=== PATIENT | female | born 1970 | race Caucasian/White ===

== ENCOUNTER 2018-11-07 15:25 | Emergency (ER) | payer SELFPAY ==
[~2018-11-07] VITALS: Ht 175.3 cm; Wt 79.4 kg
--- OUTSIDE RECORDS SUMMARY | 2018-11-07 15:28 | XMS REPORT ---
Author Author [facility] Address Unknown Phone Unavailable Care Team Providers Care O And M Supervisor Name Role Phone Unavailable Unavailable Payers Payer Name Policy Type Policy Number Effective Date Expiration Date Problems This patient has no known problems. Allergies, Adverse Reactions, Alerts Allergy Name Allergy Type Status Severity Reaction(s) Onset Date Inactive Date Treating Clinician Comments sulfamethoxazole DA Active SV 2018-07-25 00:00:00 trimethoprim DA Active SV 2018-07-25 00:00:00 sulfamethoxazole DA Active MO 2018-07-24 00:00:00 trimethoprim DA Active MO 2018-07-24 00:00:00 milk DA Active 2015-09-09 00:00:00 Medications This patient has no known medications. Results Test Description Test Time Test Comments Text Results Atomic Results Result Comments C REACTIVE PROTEIN 2018-07-31 07:32:00 C REACTIVE PROTEIN (test code=CRP) 0.50 MG/DL 0.00-9.99 MODESTA [id number] 07:32:00* Test Item Value Reference Range Comments MODESTA DIRECT (test code=ANADIR) Positive () Negative <1:80 Borderline 1:80 Positive >1:80 HOMOGENEOUS PATTERN=1:160 HIGH Negative <1:80 Borderline 1:80 Positive >1:80Note:A positive MODESTA result may occur in healthy individuals (lowtiter) or be associated with a variety of diseases. Seeinterpretation chart which is not all inclusive: Pattern Antigen Detected Suggested Disease Association ------- --------- Homogeneous DNA(ds,ss), SLE - High titers Nucleosomes, Histones Drug-induced SLE Speckled Sm, EARTH MOVER, SCL-70 SLE,MCTD,PSS (diffuse form), SS-A/SS-B Sjogrens Nucleolar SCL-70, PM-1/SCL High titers Scleroderma, PM/DM Centromere Centromere PSS (limited form) w/Crest syndrome variable Nuclear Dot Sp100,[id number] Primary Biliary Cirrhosis Nuclear GP210, Primary Biliary CirrhosisMembrane radha A,B,C Previously reported result: Positive Edited by: MIKALA on 07/31/18:80601707/31/18 0731: MODESTA DIRECT previously reported as: Positive H Negative <1:80 Borderline 1:80 Positive >1:80 AB [id number] 07:32:00* Test Item Value Reference Range Comments AB BLASTOMYCES (test code=BLASTOAB) Negative Neg:<1:1 INTERPRETATION: <1:8 NO ANTIBODY DETECTED. NO EVIDENCE OF IMMUNITY.> OR=1:8 ANTIBODY DETECTED. SUGGESTIVE OF INFECTION AT SOME UNDETERMINED TIME IN THE PAST. MANY PROVEN CASES OF BLASTOMYCOSIS FAIL TO REACTSEROLOGICALLY, THEREFORE, THE ABSENCE OF TITER DOES NOT RULEOUT THE POSSIBILITY OF INFECTION. IT IS RECOMMENDED THATACUTE AND CONVALESCENT SERA BE SUBMITTED AND ASSAYEDTOGETHER TO OBTAIN A DIAGNOSTIC INTERPRETATION OF AN ACUTEINFECTION, IF CLINICALLY INDICATED. AB [id number] 07:32:00* Test Item Value Reference Range Comments AB COCCIDIOIDES (test code=COCCIAB) <0.150 < 1:2 C REACTIVE [id number] 07:31:00* Test Item Value Reference Range Comments C REACTIVE PROTEIN (test code=CRP) 0.50 MG/DL 0.00-9.99 MODESTA [id number] 07:31:00* Test Item Value Reference Range Comments MODESTA DIRECT (test code=ANADIR) Positive () Negative <1:80 Borderline 1:80 Positive >1:80 HOMOGENEOUS PATTERN=1:160 HIGH Negative <1:80 Borderline 1:80 Positive >1:80Note:A positive MODESTA result may occur in healthy individuals (lowtiter) or be associated with a variety of diseases. Seeinterpretation chart which is not all inclusive: Pattern Antigen Detected Suggested Disease Association ------- --------- Homogeneous DNA(ds,ss), SLE - High titers Nucleosomes, Histones Drug-induced SLE Speckled Sm, EARTH MOVER, SCL-70 SLE,MCTD,PSS (diffuse form), SS-A/SS-B Sjogrens Nucleolar SCL-70, PM-1/SCL High titers Scleroderma, PM/DM Centromere Centromere PSS (limited form) w/Crest syndrome variable Nuclear Dot Sp100,h41-taddqp Primary Biliary Cirrhosis Nuclear GP210, Primary Biliary CirrhosisMembrane radha A,B,C Previously reported result: Positive Edited by: MIKALA on 07/31/18:[id number]/31/18 0731: MODESTA DIRECT previously reported as: Positive H Negative <1:80 Borderline 1:80 Positive >1:80 AB [id number] 07:31:00* Test Item Value Reference Range Comments AB BLASTOMYCES (test code=BLASTOAB) Negative Neg:<1:1 INTERPRETATION: <1:8 NO ANTIBODY DETECTED. NO EVIDENCE OF IMMUNITY.> OR=1:8 ANTIBODY DETECTED. SUGGESTIVE OF INFECTION AT SOME UNDETERMINED TIME IN THE PAST. MANY PROVEN CASES OF BLASTOMYCOSIS FAIL TO REACTSEROLOGICALLY, THEREFORE, THE ABSENCE OF TITER DOES NOT RULEOUT THE POSSIBILITY OF INFECTION. IT IS RECOMMENDED THATACUTE AND CONVALESCENT SERA BE SUBMITTED AND ASSAYEDTOGETHER TO OBTAIN A DIAGNOSTIC INTERPRETATION OF AN ACUTEINFECTION, IF CLINICALLY INDICATED. AB [id number] 07:31:00* Test Item Value Reference Range Comments AB COCCIDIOIDES (test code=COCCIAB) < 1:2 C REACTIVE [id number] 07:18:00* Test Item Value Reference Range Comments C REACTIVE PROTEIN (test code=CRP) 0.50 MG/DL 0.00-9.99 MODESTA [id number] 07:18:00* Test Item Value Reference Range Comments MODESTA DIRECT (test code=ANADIR) Positive () Negative <1:80 Borderline 1:80 Positive >1:80 AB [id number] 07:18:00* Test Item Value Reference Range Comments AB BLASTOMYCES (test code=BLASTOAB) Negative Neg:<1:1 INTERPRETATION: <1:8 NO ANTIBODY DETECTED. NO EVIDENCE OF IMMUNITY.> OR=1:8 ANTIBODY DETECTED. SUGGESTIVE OF INFECTION AT SOME UNDETERMINED TIME IN THE PAST. MANY PROVEN CASES OF BLASTOMYCOSIS FAIL TO REACTSEROLOGICALLY, THEREFORE, THE ABSENCE OF TITER DOES NOT RULEOUT THE POSSIBILITY OF INFECTION. IT IS RECOMMENDED THATACUTE AND CONVALESCENT SERA BE SUBMITTED AND ASSAYEDTOGETHER TO OBTAIN A DIAGNOSTIC INTERPRETATION OF AN ACUTEINFECTION, IF CLINICALLY INDICATED. AB [id number] 07:18:00* Test Item Value Reference Range Comments AB COCCIDIOIDES (test code=COCCIAB) < 1:2 - CT CHEST W/O [id number] 00:02:00 Patient Name: DAISY MILIAN Unit No: [id number] EXAMS: CPT CODE: [id number] CT CHEST W/O CONTRAST 07408 LOCATION: V20 EXAM: - CT CHEST W/O CONTRAST HISTORY: ILD TECHNIQUE: Axial imaging of the chest from the base of the neck through the upper abdomen without the administration of intravenous contrast is performed . Prone and supine high-resolution images are performed. Sagittal and coronal reconstructions. CT scan performed using appropriate/available dose optimization/reduction techniques. DLP 712.40 mGy*cm COMPARISON:CTA chest 07/25/2018 FINDINGS: The visualized thyroid gland is unremarkable. No mediastinal, hilar or axillary lymphadenopathy. The noncalcified thoracic aorta is at the upper limits of normal, measuring 4.0 x 3.9 cm at the level of the right main pulmonary artery. The heart size is normal. No pericardial eff usion. The main pulmonary artery is noted to be dilated measuring up to 3.1 cm at the pulmonary artery bifurcation. Trace bila teral pleural effusions are present, increased since prior. Subjacent mil d groundglass density is present, which resolves on prone imaging compatib le with atelectasis. No evidence of a reticular or centrilobular process. A few scattered nonspecific nodules are present, a 2 mm right upper lobe nodule is present series 4 image 21. A 3 mm right lower lobe nodule is p resent, image 31. There is no evidence of honeycombing. No bronchiectasi s. Evaluation the visualized portion of the upper abdomen demonstr ates increased density material in the gallbladder compatible with sludge. The osseous structures are intact. IMPRESSION: 1. No findings to indicate interstitial lung disease. 2. Trace bilateral pleural effusions. 3. Small nonspecific paren chymal nodules are present. Follow-up according to Fleischner Society g uigermaine is recommended: In a low risk patient, no routine follow up is prescribed. In a high risk patient, consider CT follow up at a 12 month interval. 4. The pulmonary artery is noted to be mildly dilat ed, which can be seen in pulmonary artery hypertension. [facility] NAME: DAISY MILIAN [address] PHYS: [place] [address] : 1970 AGE: 48 SEX: F LOC: Z.442 A PHONE #: [phone] EXAM DATE: 07/27/2018 STATUS: DIS IN FAX #: [phone] RAD #: D/C DT [id number] PAGE 1 Signed Report (CONTINUED) Patient Name: DAISY MILIAN Unit No: [id number] EXAMS: CPT CODE: [id number] CT CHEST W/O CONTRAST 76262 <Continued> 5. The thoracic aorta is at the upper limits of normal. 6. Small amount of sludge in the gallbladder. at 0002 Reported and signed by: Narcisa Moreno MD CC: Raymundo Ashley MD; Brook Fierro MD Technologist: DAISY FLOREZ RT(R); Loli Gr, RT CTDI: DLP: Trnscrpt: 07/28/2018 (0002) t.[email or web address].NS15 [facility] NAME: DAISY MILIAN PHYS: [place] [address] : 1970 AGE: 48 SEX: F LOC: Z.442 A PHONE #: [phone] EXAM DATE: 07/27/2018 STATUS: DIS IN FAX #: [phone] RAD #: D/C DT [id number] PAGE 2 Signed Report Patient Name: DAISY MILIAN Unit No: [id number] EXAMS: CPT CODE: [id number] CT CHEST W/O CONTRAST 21528 <Continued> Orig Print D/T: S: 07/28/2018 (0005) [facility]an NAME: DAISY MILIAN PHYS: [place] [address] : 1970 AGE: 48 SEX: F LOC: Z.442 A PHONE #: [phone] EXAM DATE: 07/27/2018 STATUS: DIS IN FAX #: [phone] RAD #: D/C DT [id number] PAGE 3 Signed Report - CT CHEST W/O [id number] 00:02:00 Patient Name: DAISY MILIAN Unit No: [id number] EXAMS: CPT CODE: [id number] CT CHEST W/O CONTRAST 56202 LOCATION: V20 EXAM: - CT CHEST W/O CONTRAST HISTORY: ILD TECHNIQUE: Axial imaging of the chest from the base of the neck through the upper abdomen without the administration of intravenous contrast is performed . Prone and supine high-resolution images are performed. Sagittal and coronal reconstructions. CT scan performed using appropriate/available dose optimization/reduction techniques. DLP 712.40 mGy*cm COMPARISON:CTA chest 07/25/2018 FINDINGS: The visualized thyroid gland is unremarkable. No mediastinal, hilar or axillary lymphadenopathy. The noncalcified thoracic aorta is at the upper limits of normal, measuring 4.0 x 3.9 cm at the level of the right main pulmonary artery. The heart size is normal. No pericardial eff usion. The main pulmonary artery is noted to be dilated measuring up to 3.1 cm at the pulmonary artery bifurcation. Trace bila teral pleural effusions are present, increased since prior. Subjacent mil d groundglass density is present, which resolves on prone imaging compatib le with atelectasis. No evidence of a reticular or centrilobular process. A few scattered nonspecific nodules are present, a 2 mm right upper lobe nodule is present series 4 image 21. A 3 mm right lower lobe nodule is p resent, image 31. There is no evidence of honeycombing. No bronchiectasi s. Evaluation the visualized portion of the upper abdomen demonstr ates increased density material in the gallbladder compatible with sludge. The osseous structures are intact. IMPRESSION: 1. No findings to indicate interstitial lung disease. 2. Trace bilateral pleural effusions. 3. Small nonspecific paren chymal nodules are present. Follow-up according to Fleischner Society g uidelines is recommended: In a low risk patient, no routine follow up is prescribed. In a high risk patient, consider CT follow up at a 12 month interval. 4. The pulmonary artery is noted to be mildly dilat ed, which can be seen in pulmonary artery hypertension. [facility] NAME: DAISY MILIAN [address] PHYS: [place] [address] : 1970 AGE: 48 SEX: F LOC: Z.442 A PHONE #: [phone] EXAM DATE: 07/27/2018 STATUS: ADM IN FAX #: [phone] RAD #: D/C DT PAGE 1 Signed Report (CONTINUED) Patient Name: DAISY MILIAN Unit No: [id number] EXAMS: CPT CODE: [id number] CT CHEST W/O CONTRAST 59089 <Continued> 5. The thoracic aorta is at the upper limits of normal. 6. Small amount of sludge in the gallbladder. at 0002 Reported and signed by: Narcisa Moreno MD CC: Raymundo Ashley MD; Brook Fierro MD Technologist: DAISY FLOREZ RT(R); Loli Gr RT CTDI: DLP: Trnscrpt: 07/28/2018 (0002) [email or web address] [facility] NAME: DAISY [address]IAN[address] PHYS: Brook Capellan MD [place] [id number] : 1970 AGE: 48 SEX: F LOC: Z.442 A PHONE #: [phone] EXAM DATE: 07/27/2018 STATUS: ADM IN FAX #: [phone] RAD #: D/C DT PAGE 2 Signed Report Patient Name: DAISY MILIAN Unit No: [id number] EXAMS: CPT CODE: [id number] CT CHEST W/O CONTRAST 73153 <Continued> Orig Print D/T: S: 07/28/2018 (0005) [facility] NAME: DAISY MILIAN PHYS: [place] [address] : 1970 AGE: 48 SEX: F LOC: Z.442 A PHONE #: [phone] EXAM DATE: 07/27/2018 STATUS: ADM IN FAX #: [phone] RAD #: D/C DT PAGE 3 Signed Report RHEUMATOID FACTOR [id number] 22:13:00* Test Item Value Reference Range Comments RHEUMATOID FACTOR SCREEN (test code=RA) NEGATIVE NEGATIVE SED [id number] 18:54:00* Test Item Value Reference Range Comments SED RATE (test code=SEDW) 44 MM/HR 0-20 C REACTIVE [id number] 18:54:00* Test Item Value Reference Range Comments C REACTIVE PROTEIN (test code=CRP) 0.50 MG/DL 0.00-9.99 MODESTA [id number] 18:54:00* Test Item Value Reference Range Comments MODESTA DIRECT (test code=ANADIR) NEGATIVE AB [id number] 18:54:00* Test Item Value Reference Range Comments AB BLASTOMYCES (test code=BLASTOAB) NEG: <1:1 AB [id number] 18:54:00* Test Item Value Reference Range Comments AB COCCIDIOIDES (test code=COCCIAB) < 1:2 PROCALCITONIN (PCT)2018-07-26 18:50:00* Test Item Value Reference Range Comments PROCALCITONIN (PCT) (test code=PROCAL) < 0.05 NG/ML PROCALCITONIN (PCT) NORMAL RANGE (ADULT):<0.05 NG/ML. - a concentration < 0.5 ng/mL represents a low risk ofsevere sepsis and/or septic shock. - a concentration > 2 ng/mL represents a high risk ofsevere sepsis and/or septic shock. Nevertheless, concentrations < 0.5 ng/mL do not exclude aninfection, on account of localized infections (withoutsystemic signs) which can be associated with such lowconcentrations, or a systemic infection in its initialstages (< 6 hours). Furthermore, increased procalcitonincan occur without infection. PCT concentrations between 0.5and 2.0 ng/mL should be interpreted taking into account thepatient's history. It is recommended to retest PCT within 6-24 hours if any concentrations < 2 ng/mL are obtained. [id number] 13:55:00* Test Item Value Reference Range Comments TROPONIN-I (test code=TROPI) 0.053 NG/ML 0.012-0.033 Q 6HRS. LAB.RB LIPOPROTEIN LDL [id number] 09:03:00* Test Item Value Reference Range Comments LIPOPROTEIN LDL DIRECT (test code=LDLDIR) 131 mg/dL 100-129 Reference Interval: mg/dL mmol/L Optimal <100 <2.6Near/above optimal 100-129 2.6- 3.3Borderline High 130-159 3.4-4.1High 160-189 4.1-4.9Very High >=190 >=4.9=========This LDL result is a direct measurement.========= [id number] 09:03:00* Test Item Value Reference Range Comments TROPONIN-I (test code=TROPI) 0.080 NG/ML 0.012-0.033 LIPOPROTEIN LDL [id number] 08:03:00* Test Item Value Reference Range Comments LIPOPROTEIN LDL DIRECT (test code=LDLDIR) mg/dL 100-129 [id number] 08:03:00* Test Item Value Reference Range Comments TROPONIN-I (test code=TROPI) 0.080 NG/ML 0.012-0.033 - CTA [id number] 23:32:00 Patient Name: DAISY MILIAN Unit No: [id number] EXAMS: CPT CODE: [id number] CTA CHEST 69789 Examination: CTA chest, PE protocol Indication: Chest pain Comparison: None available Location: P16 Technique: Multiple contiguous axial 1.25 mm images were obtained through the lung after administration of IV contrast. Coronal and sagittal maximum intensity projection (MIPs) images were generated. One or more of the following dose reduction techniques were used: Automated exposure control, adjustment of the mA and/or kV according to patient size, and/or utilization of iterative reconstruction technique. Findings: Evaluation limited secondary to phase of contrast, contrast is an aortic phase, this may in part be secondary to altered hemodynamics in setting of the patient's habitus. No evidence of acute pulmonary embolism is seen to the level of the proximal lobar pulmonary arteries. Nonspecific dilation of the main pulmonary artery is seen measuring up to 3.1 cm this can be seen in the setting of pulmonary artery hypertension. These findings were confirmed on MPR and MIP images. History imaging evaluation. No large consolidation, mass or pneumothorax is visualized. No pleural effusion of pleural thickening. There are no enlarged mediastinal, hilar, supraclavicular or axillary lymph nodes by CT criteria. Heart size is normal. There is no pericardial effusion or thickening. Ascending aorta is mildly dilated to 4 cm.. Although the evaluation of the aortic root is limited in the absence of gating, the remainder of the aorta remains unremarkable with the exception of aortic calcifications. Limited early arterial phase evaluation of the upper abdomen is unremarkable. No suspicious or destructive osseous lesions. Likely Schmorl's node is seen within the lower thoracic vertebral bodies Impression: 1. Limited examination secondary to phase of contrast, no evidence of acute pulmonary embolism is seen to level of proximal lobar pulmonary [facility] NAME: DAISY MILIAN PHYS: [place] [address] : 1970 AGE: 48 SEX: F LOC: Z.442 A PHONE #: [phone] EXAM DATE: 07/25/2018 STATUS: DIS IN FAX #: [phone] RAD #: D/C DT [id number] PAGE 1 Signed Report (CONTINUED) Patient Name: DAISY MILIAN Unit No: [id number] EXAMS: CPT C ODE: [id number] CTA CHEST 82870 <Continued> arteries 2. Additional findings as detailed above at 2332 Reported and signed by: Jerry Hawkins CC: Aristeo Delgadillo Technologist: Bob Lo, RT(R)(CT) CTDI: DLP: Trnscrpt: 07/25/2018 (2332) t.[email or web address] [facility] NAME: DAISY MILIAN PHYS: [address] [place] [address] : 1970 AGE: 48 SEX: F LOC: Z.442 A PHONE #: [phone] EXAM DATE: 07/25/2018 STATUS: DIS IN FAX #: [phone] RAD #: D/C DT [id number] PAGE 2 Signed Report Patient Name: DAISY MILIAN Unit No: [id number] EXAMS: CPT CODE: [id number] CTA CHEST 37437 <Continued> Orig Print D/T: S: 07/25/2018 (2335) [facility] NAME: DAISY MILIAN PHYS: [place] [address] : 1970 AGE: 48 SEX: F LOC: Z.442 A PHONE #: [phone] EXAM DATE: 07/25/2018 STATUS: DIS IN FAX #: [phone] RAD #: D/C [id number] PAGE 3 Signed Report - CTA [id number] 23:32:00 Patient Name: DAISY MILIAN Unit No: [id number] EXAMS: CPT CODE: [id number] CTA CHEST 59298 Examination: CTA chest, PE protocol Indication: Chest pain Comparison: None available Location: P16 Technique: Multiple contiguous axial 1.25 mm images were obtained through the lung after administration of IV contrast. Coronal and sagittal maximum intensity projection (MIPs) images were generated. One or more of the following dose reduction techniques were used: Automated exposure control, adjustment of the mA and/or kV according to patient size, and/or utilization of iterative reconstruction technique. Findings: Evaluation limited secondary to phase of contrast, contrast is an aortic phase, this may in part be secondary to altered hemodynamics in setting of the patient's habitus. No evidence of acute pulmonary embolism is seen to the level of the proximal lobar pulmonary arteries. Nonspecific dilation of the main pulmonary artery is seen measuring up to 3.1 cm this can be seen in the setting of pulmonary artery hypertension. These findings were confirmed on MPR and MIP images. History imaging evaluation. No large consolidation, mass or pneumothorax is visualized. No pleur al effusion of pleural thickening. There are no enlarged mediasti nal, hilar, supraclavicular or axillary lymph nodes by CT criteria. Heart size is normal. There is no pericardial effusion or thickening. Ascending aorta is mildly dilated to 4 cm.. Although the evaluation of the aortic root is limited in the absence of gating, the remainder of the aorta remains unremarkable with the exception of aortic calcif ications. Limited early arterial phase evaluation of the upper abd omen is unremarkable. No suspicious or destructive osseous lesions. Likely Schmorl's node is seen within the lower thoracic vertebra l bodies Impression: 1. Limited exa mination secondary to phase of contrast, no evidence of acute pulmonary embolism is seen to level of proximal lobar pulmonary [facility] NAME: DAISY MILIAN [address] PHYS: LATANYA [place] [address] : 1970 AGE: 48 SEX: F LOC: Z.ERS PHONE #: [phone] EXAM DATE: 07/25/2018 STATUS: PRE ER FAX #: [phone] RAD #: D/C DT PAGE 1 Signed Report (CONTINUED) Patient Name: DAISY MILIAN Unit No: [id number] EXAMS: CPT C ODE: [id number] CTA CHEST 61911 <Continued> arteries 2. Additional findings as detailed above at 2332 Reported and signed by: Jerry Hawkins CC: Aristeo Delgadillo Technologist: Bob Lo, RT(R)(CT) CTDI: DLP: Trnscrpt: 07/25/2018 (233) [email or web address] [facility]an NAME: DAISY MILIAN [address] PHYS: [place] [address] : 1970 AGE: 48 SEX: F LOC: Bradley.ERS PHONE #: [phone] EXAM DATE: 07/25/2018 STATUS: PRE ER FAX #: [phone] RAD #: D/C DT PAGE 2 Signed Report Patient Name: DAISY MILIAN Unit No: [id number] EXAMS: CPT CODE: [id number] CTA CHEST 17956 <Continued> Orig Print D/T: S: 07/25/2018 (1335) [facility] NAME: DAISY MILIAN [address] PHYS: [address] [place] [address] : 1970 AGE: 48 SEX: F LOC: Z.ERS PHONE #: [phone] EXAM DATE: 07/25/2018 STATUS: PRE ER FAX #: [phone] RAD #: D/C DT PAGE 3 Signed Report NT PRO-BRAIN NATRIURETIC [id number] 23:24:00* Test Item Value Reference Range Comments NT PRO-BRAIN NATRIURETIC PEPTI (test code=PROBNP) 43.1 pg/mL 0-125 NT PRO-BNP IS THE REPLACEMENT ASSAY FOR BNP. [id number] 23:24:00* Test Item Value Reference Range Comments TROPONIN-I (test code=TROPI) < 0.012 NG/ML 0.012-0.033 TROPONIN I [id number] 23:00:00* Test Item Value Reference Range Comments TROPONIN I RAPID (test code=TROPIRAP) 0.00 NG/ML 0.00-0.05 CBC W/O [id number] 22:58:00* Test Item Value Reference Range Comments WHITE BLOOD CELL (test code=WBC) 11.5 K/MM3 3.8-9.8 RED BLOOD CELL (test code=RBC) 4.29 M/MM3 3.58-4.97 HEMOGLOBIN (test code=HGB) 12.7 G/DL 11.2-14.9 HEMATOCRIT (test code=HCT) 38.5 % 33.2-43.5 MEAN CELL VOLUME (test code=MCV) 90 fL 80.7-99.1 MEAN CELL HGB (test code=MCH) 29.6 pg 27.0-34.1 MEAN CELL HGB CONCETRATION (test code=MCHC) 33.0 % 32.2-35.7 RED CELL DISTRIBUTION WIDTH (test code=RDW) 13.2 % 12.1-15.2 PLATELET COUNT (test code=PLT) 268 K/MM3 129-368 IMMATURE GRANULOCYTE % (test code=IG%) 0.3 % 0.0-2.0 NEUTROPHIL # (test code=NT#) 9.3 K/mm3 2.0-7.6 IMMATURE GRANULOCYTE # (test code=IG#) 0.04 x10 3/uL 0-0.03 LYMPHOCYTE # (test code=LY#) 2.0 K/mm3 1.0-3.8 MONOCYTE # (test code=MO#) 0.13 K/mm3 0.1-0.8 EOSINOPHIL # (test code=EO#) 0.0 K/mm3 0.0-0.2 BASOPHIL # (test code=BA#) 0.02 K/mm3 0.0-0.2 NUCLEATED RBC # (test code=NRBC#) 0.0 K/mm3 0.0-0.1 - XR CHEST [id number] 22:56:00 Patient Name: DAISY MILIAN Unit No: [id number] EXAMS: CPT CODE: [id number] XR CHEST 1V 08596 EXAM: - XR CHEST 1V LOCATION: C3 HISTORY: SOB, CP COMPARISON: None available time of interpretation. FINDINGS: Single view of the chest. No indwelling lines or tubes. No pneumothorax. The lungs are clear. No pleural effusions are present. The mediastinal contours are unremarkable. No acute osseous findings are present. IMPRESSION: No acute cardiopulmonary abnormality. at 2256 Reported and signed by: Josesito Owen MD CC: Aristeo Delgadillo Technologist: Mariann Mckeon (RT) Transcrpt Date/Tm/Trnsp: 07/25/2018 (113) [email or web address] Orig Print D/T: S: 07/25/2018 (2812) [facility] NAME: DAISY MILIAN [address] PHYS: LATANYA [place] [address] : 1970 AGE: 48 SEX: F LOC: Z.442 A PHONE #: [phone] EXAM DATE: 07/25/2018 STATUS: DIS IN FAX #: [phone] RADIOLOGY NO: PAGE 1 Signed Report - XR CHEST [id number] 22:56:00 Patient Name: DAISY MILIAN Unit No: [id number] EXAMS: CPT CODE: [id number] XR CHEST 1V [id number] EXAM: - XR CHEST 1V LOCATION: C3 HISTORY: SOB, CP COMPARISON: None available time of interpretation. FINDINGS: Single view of the chest. No indwelling lines or tubes. No pneumothorax. The lungs are clear. No pleural effusions are present. The mediastinal contours are unremarkable. No acute osseous findings are present. IMPRESSION: No acute cardiopulmonary abnormality. at 2256 Reported and signed by: Josesito Owen MD CC: Aristeo Delgadillo Technologist: Mariann Mckeon (RT) Transcrpt Date/Tm/Trnsp: 07/25/2018 (2255) [email or web address] Orig Print D/T: S: 07/25/2018 (085) VANESSA Quan NAME: DAISY MILIAN PHYS: [place] [address] : 1970 AGE: 48 SEX: F LOC: Z.ERS PHONE #: [phone] EXAM DATE: 07/25/2018 STATUS: PRE ER FAX #: [phone] RADIOLOGY NO: PAGE 1 Signed Report - XR CHEST [id number] 22:56:00 Patient Name: DAISY MILIAN Unit No: [id number] EXAMS: CPT CODE: [id number] XR CHEST 1V [id number] EXAM: - XR CHEST 1V LOCATION: C3 HISTORY: SOB, CP COMPARISON: None available time of interpretation. FINDINGS: Single view of the chest. No indwelling lines or tubes. No pneumothorax. The lungs are clear. No pleural effusions are present. The mediastinal contours are unremarkable. No acute osseous findings are present. IMPRESSION: No acute cardiopulmonary abnormality. at 2256 Reported and signed by: Josesito Owen MD CC: Aristeo Delgadillo Technologist: Mariann Mckeon (RT) Transcrpt Date/Tm/Trnsp: 07/25/2018 (2255) [email or web address] Orig Print D/T: S: 07/25/2018 (941) VANESSA Quan NAME: DAISY MILIAN PHYS: [place] [address] : 1970 AGE: 48 SEX: F LOC: Z.442 A PHONE #: [phone] EXAM DATE: 07/25/2018 STATUS: ADM IN FAX #: [phone] RADIOLOGY NO: PAGE 1 Signed Report POC VENOUS BLOOD [id number] 22:52:00* Test Item Value Reference Range Comments POC LACTIC ACID (test code=POCLAC) 2.30 MMOL/L 0.4-2.0 POC VENOUS BLOOD GAS PH (test code=POCPHV) 7.402 7.35-7.45 POC VENOUS BLOOD GAS PCO2 (test code=SQBZVG8C) 40.8 mmHg 35.0-45.0 POC VENOUS BLOOD GAS PO2 (test code=HXXET8K) 40.0 mmHG 0-40 POC HCO3 VENOUS (test code=UGQOBI4W) 25.4 MMOL/L 20-26 POC BASE EXCESS VENOUS (test code=POCBEV) 1 MMOL/L -3.0-3.0 POC O2 SATURATION VENOUS (test code=CDBA4AS) 75 % 72-77 CHEMISTRY 8 [id number] 22:52:00* Test Item Value Reference Range Comments IONIZED CALCIUM (test code=CAIABG) MMOL/L 1.12-1.24 ISTAT-TCO2 VENOUS (test code=TCO2VP) MMOL/L 23-32 ISTAT-SODIUM (test code=NAP) MMOL/L 137-144 ISTAT-POTASSIUM (test code=KP) MMOL/L 3.1-4.8 ISTAT-CHLORIDE (test code=CLP) MMOL/L 97-108 ISTAT-GLUCOSE (test code=GLUP) MG/DL 60-99 ISTAT-BUN (test code=BUNP) MG/DL 9-21 BEDSIDE CREATININE (test code=CREATBED) MG/DL 0.6-1.4 GLOMERULAR FILTRATION RATE POC (test code=GFRBED) 77 58-135 Reporting units: ml/min/1.73 m2 (Modified MDRD Formula)Reference Range: > or=60 ml/min/1.73 m2 CHEMISTRY 8 [id number] 22:52:00* Test Item Value Reference Range Comments IONIZED CALCIUM (test code=CAIABG) 1.12 MMOL/L 1.12-1.24 ISTAT-TCO2 VENOUS (test code=TCO2VP) 25 MMOL/L 23-32 ISTAT-SODIUM (test code=NAP) 141 MMOL/L 137-144 ISTAT-POTASSIUM (test code=KP) 3.8 MMOL/L 3.1-4.8 ISTAT-CHLORIDE (test code=CLP) 104 MMOL/L 97-108 ISTAT-GLUCOSE (test code=GLUP) 135 MG/DL 60-99 ISTAT-BUN (test code=BUNP) 7 MG/DL 9-21 BEDSIDE CREATININE (test code=CREATBED) 0.8 MG/DL 0.6-1.4 GLOMERULAR FILTRATION RATE POC (test code=GFRBED) 77 58-135 Reporting units: ml/min/1.73 m2 (Modified MDRD Formula)Reference Range: > or=60 ml/min/1.73 m2 - MRA HEAD W/O [id number] 22:47:00 Patient Name: DAISY MILIAN Unit No: [id number] EXAMS: CPT CODE: [id number] MRA HEAD W/O CONT 19122 HISTORY: Headache TECHNIQUE: Multiplanar multisequence MR images of the brain were obtained without intravenous contrast. 3-D uakg-mv-zrepgo MRA images of the [place] were obtained. FINDINGS: There is no intracranial hemorrhage, mass or mass effect. The ventricular system and sulci are age-appropriate. There is no evidence of acute infarction. No significant signal abnormalities are demonstrated throughout the brain. Appropriate flow-voids are present at the skull base. The visualized orbits and sinuses show no significant abnormalities. MRA: The intracranial internal carotid arteries, anterior cerebral arteries, and middle cerebral arteries show no significant abnormalities. A small anterior communicating artery is present. Posterior communicating arteries are visualized. The distal vertebral arteries, basilar artery, and posterior cerebral arteries show no significant abnormalities. IMPRESSION: 1. No significant intracranial abnormalities demonstrated. 2. No significant intracranial vascular abnormality identified. at 2247 Reported and signed by: Brennan Steve MD CC: Undefined Provider Technologist: RT Angel(Dm)(CT) Transcrpt Date/Tm/Trnsp: 07/25/2018 (2246) [email or web address] Orig Print D/T: S: 07/25/2018 (0192) [facility] NAME: DAISY MILIAN [address] [address] PHYS: UNDEFINED - [place] [address] : 1970 AGE: 48 SEX: F LOC: Z.MRI PHONE #: [phone] EXAM DATE: 07/25/2018 STATUS: REG REF FAX #: [phone] RADIOLOGY NO: PAGE 1 Signed Report - MRI BRAIN W/O [id number] 22:47:00 Patient Name: DAISY MILIAN Unit No: [id number] EXAMS: CPT CODE: [id number] MRI BRAIN W/O CONTRAST 08123 HISTORY: Headache TECHNIQUE: Multiplanar multisequence MR images of the brain were obtained without intravenous contrast. 3-D kdba-jt-kimdws MRA images of the [place] were obtained. FINDINGS: There is no intracranial hemorrhage, mass or mass effect. The ventricular system and sulci are age-appropriate. There is no evidence of acute infarction. No significant signal abnormalities are demonstrated throughout the brain. Appropriate flow-voids are present at the skull base. The visualized orbits and sinuses show no significant abnormalities. MRA: The intracranial internal carotid arteries, anterior cerebral arteries, and middle cerebral arteries show no significant abnormalities. A small anterior communicating artery is present. Posterior communicating arteries are visualized. The distal vertebral arteries, basilar artery, and posterior cerebral arteries show no significant abnormalities. IMPRESSION: 1. No significant intracranial abnormalities demonstrated. 2. No significant intracranial vascular abnormality identified. at 2247 Reported and signed by: Brennan Steve MD CC: Undefined Provider Technologist: RT Angel(R)(CT) Transcrpt Date/Tm/Trnsp: 07/25/2018 (3903) [email or web address] Orig Print D/T: S: 07/25/2018 (6590) [facility] NAME: DAISY MILIAN [address] [address] PHYS: UNDEFINED - [place] [address] : 1970 AGE: 48 SEX: F LOC: Z.MRI PHONE #: [phone] EXAM DATE: 07/25/2018 STATUS: REG REF FAX #: [phone] RADIOLOGY NO: PAGE 1 Signed Report - MRA HEAD W/O [id number] 22:47:00 Patient Name: DAISY MILIAN Unit No: [id number] EXAMS: CPT CODE: [id number] MRA HEAD W/O CONT 36046 HISTORY: Headache TECHNIQUE: Multiplanar multisequence MR images of the brain were obtained without intravenous contrast. 3-D ieeh-ck-mtiohg MRA images of the [place] were obtained. FINDINGS: There is no intracranial hemorrhage, mass or mass effect. The ventricular system and sulci are age-appropriate. There is no evidence of acute infarction. No significant signal abnormalities are demonstrated throughout the brain. Appropriate flow-voids are present at the skull base. The visualized orbits and sinuses show no significant abnormalities. MRA: The intracranial internal carotid arteries, anterior cerebral arteries, and middle cerebral arteries show no significant abnormalities. A small anterior communicating artery is present. Posterior communicating arteries are visualized. The distal vertebral arteries, basilar artery, and posterior cerebral arteries show no significant abnormalities. IMPRESSION: 1. No significant intracranial abnormalities demonstrated. 2. No significant intracranial vascular abnormality identified. at 2247 Reported and signed by: Brennan Steve MD CC: Undefined Provider Technologist: RT Angel(R)(CT) Transcrpt Date/Tm/Trnsp: 07/25/2018 (2246) [email or web address] Orig Print D/T: S: 07/25/2018 (9662) [facility] NAME: DAISY MILIAN [address] [address] PHYS: UNDEFINED - [place] [address] : 1970 AGE: 48 SEX: F LOC: Z.MRI PHONE #: [phone] EXAM DATE: 07/25/2018 STATUS: REG REF FAX #: [phone] RADIOLOGY NO: PAGE 1 Signed Report - MRI BRAIN W/O [id number] 22:47:00 Patient Name: DAISY MILIAN Unit No: [id number] EXAMS: CPT CODE: [id number] MRI BRAIN W/O CONTRAST 03102 HISTORY: Headache TECHNIQUE: Multiplanar multisequence MR images of the brain were obtained without intravenous contrast. 3-D eifj-vm-skrgef MRA images of the [place] were obtained. FINDINGS: There is no intracranial hemorrhage, mass or mass effect. The ventricular system and sulci are age-appropriate. There is no evidence of acute infarction. No significant signal abnormalities are demonstrated throughout the brain. Appropriate flow-voids are present at the skull base. The visualized orbits and sinuses show no significant abnormalities. MRA: The intracranial internal carotid arteries, anterior cerebral arteries, and middle cerebral arteries show no significant abnormalities. A small anterior communicating artery is present. Posterior communicating arteries are visualized. The distal vertebral arteries, basilar artery, and posterior cerebral arteries show no significant abnormalities. IMPRESSION: 1. No significant intracranial abnormalities demonstrated. 2. No significant intracranial vascular abnormality identified. at 2247 Reported and signed by: Brennan Steve MD CC: Undefined Provider Technologist: Magdy Richardson RT(R)(CT) Transcrpt Date/Tm/Trnsp: 07/25/2018 (2246) [email or web address] Orig Print D/T: S: 07/25/2018 (547) [facility] NAME: DAISY MILIAN [id number] [address] PHYS: UNDEFINED - [place] [address] : 1970 AGE: 48 SEX: F LOC: Z.MRI PHONE #: [phone] EXAM DATE: 07/25/2018 STATUS: REG REF FAX #: [phone] RADIOLOGY NO: PAGE 1 Signed Report [id number] 17:47:00* Test Item Value Reference Range Comments MAGNESIUM (test code=MAG) 2.1 MG/DL 1.6-2.3 FAX TO 320 816 8164T3 [id number] 17:47:00* Test Item Value Reference Range Comments T3 FREE (test code=T3F) 3.24 PG/ML 2.77-5.27 FAX TO 317 614 8105THYROID STIMULATING [id number] 17:47:00* Test Item Value Reference Range Comments THYROID STIMULATING HORMONE (test code=TSH) 1.580 MIU/L 0.465-4.68 Please be aware that bias results for TSH may occur forpatient who are taking Biotin supplements. FAX TO [phone] [id number] 17:33:00* Test Item Value Reference Range Comments MAGNESIUM (test code=MAG) 2.1 MG/DL 1.6-2.3 FAX TO 837 208 8164T3 [id number] 17:33:00* Test Item Value Reference Range Comments T3 FREE (test code=T3F) 3.24 PG/ML 2.77-5.27 FAX TO 832 962 8164THYROID STIMULATING [id number] 17:33:00* Test Item Value Reference Range Comments THYROID STIMULATING HORMONE (test code=TSH) MIU/L 0.465-4.68 FAX TO 832 962 8164T4 [id number] 17:32:00* Test Item Value Reference Range Comments T4 FREE (test code=T4F) 1.4 NG/DL 0.78-2.19 FAX TO 832 962 [id number] 17:16:00* Test Item Value Reference Range Comments MAGNESIUM (test code=MAG) 2.1 MG/DL 1.6-2.3 FAX TO 832 962 8164T3 [id number] 17:16:00* Test Item Value Reference Range Comments T3 FREE (test code=T3F) PG/ML 2.77-5.27 FAX TO 832 962 8164THYROID STIMULATING [id number] 17:16:00* Test Item Value Reference Range Comments THYROID STIMULATING HORMONE (test code=TSH) MIU/L 0.465-4.68 FAX TO 832 962 8164CPK-MB [id number] 17:47:00* Test Item Value Reference Range Comments CREATINE KINASE (CK) (test code=CK) 84 UNITS/L 30-135 CKMB (test code=CKMBT) < 0.22 NG/ML 0.0-5.6 CKMB INDEX (test code=CKMBI) 0.3 % 4.0-4.4 [id number] 17:47:00* Test Item Value Reference Range Comments TROPONIN-I (test code=TROPI) < 0.012 NG/ML 0.012-0.033 CPK-MB [id number] 17:32:00* Test Item Value Reference Range Comments CREATINE KINASE (CK) (test code=CK) 84 UNITS/L 30-135 CKMB (test code=CKMBT) NG/ML 0.0-5.6 CKMB INDEX (test code=CKMBI) % 4.0-4.4 [id number] 17:32:00* Test Item Value Reference Range Comments TROPONIN-I (test code=TROPI) NG/ML 0.0-0.045 HCG SERUM [id number] 11:53:00* Test Item Value Reference Range Comments HCG SERUM QUAL (test code=HCGQL) NEGATIVE NEGATIVE PROTHROMBIN [id number] 11:43:00* Test Item Value Reference Range Comments PROTHROMBIN TIME PATIENT (test code=PTP) 10.1 SECONDS 9.6-11.6 INTERNATIONAL NORMAL RATIO (test code=INR) 1.0 0.8-1.1 The INR is to be used only for monitoring oral anticoagulanttherapy. INDICATION INR VALUE 1. Prophylaxis, deep venous thrombosis, including high risk surgery. 2.0 - 3.0 2. Prophylaxis, deep venous thrombosis, hip surgery, treatment for deep venous thrombosis or pulmonary prevention of systemic embolism in patients with valvular heart disease, atrial fibrillation, tissue heart valve, or acute myocardial infarction. 2.0 - 3.0 3. M echanical prosthesis heart valves, recurrent systemic embolism. 3.0 - 4.5 [id number] 11:21:00* Test Item Value Reference Range Comments MAGNESIUM (test code=MAG) 2.0 MG/DL 1.6-2.3 CPK-MB [id number] 11:21:00* Test Item Value Reference Range Comments CREATINE KINASE (CK) (test code=CK) 89 UNITS/L 30-135 CKMB (test code=CKMBT) 0.23 NG/ML 0.0-5.6 CKMB INDEX (test code=CKMBI) 0.3 % 4.0-4.4 [id number] 11:21:00* Test Item Value Reference Range Comments TROPONIN-I (test code=TROPI) < 0.012 NG/ML 0.012-0.033 [id number] 11:16:00* Test Item Value Reference Range Comments MAGNESIUM (test code=MAG) MG/DL 1.6-2.3 CPK-MB [id number] 11:16:00* Test Item Value Reference Range Comments CREATINE KINASE (CK) (test code=CK) 89 UNITS/L 30-135 CKMB (test code=CKMBT) 0.23 NG/ML 0.0-5.6 CKMB INDEX (test code=CKMBI) 0.3 % 4.0-4.4 [id number] 11:16:00* Test Item Value Reference Range Comments TROPONIN-I (test code=TROPI) < 0.012 NG/ML 0.012-0.033 CPK-MB [id number] 10:49:00* Test Item Value Reference Range Comments CREATINE KINASE (CK) (test code=CK) 89 UNITS/L 30-135 CKMB (test code=CKMBT) NG/ML 0.0-5.6 CKMB INDEX (test code=CKMBI) % 4.0-4.4 [id number] 10:49:00* Test Item Value Reference Range Comments TROPONIN-I (test code=TROPI) NG/ML 0.0-0.045 BASIC METABOLIC [id number] 05:29:00* Test Item Value Reference Range Comments SODIUM (test code=NA) 141 MMOL/L 137-145 POTASSIUM (test code=K) 4.1 MMOL/L 3.5-5.1 CHLORIDE (test code=CL) 110 MMOL/L 98-107 CARBON DIOXIDE (test code=CO2) 27 MMOL/L 22-30 ANION GAP (test code=GAP) 8 MMOL/L 14-24 GLUCOSE (test code=GLU) 92 MG/DL 74-106 BLOOD UREA NITROGEN (test code=BUN) 9 MG/DL 7-17 GLOMERULAR FILTRATION RATE (test code=GFR) > 60 Reporting units: ml/min/1.73 m2 (Modified MDRD Formula)Reference Range: > or=60 ml/min/1.73 m2 CREATININE (test code=CREAT) 0.90 MG/DL 0.52-1.04 CALCIUM (test code=CA) 9.2 MG/DL 8.4-10.2 [id number] 05:29:00* Test Item Value Reference Range Comments MAGNESIUM (test code=MAG) 2.1 MG/DL 1.6-2.3 T3,T4 [id number] 05:29:00* Test Item Value Reference Range Comments T3 UPTAKE (test code=T3UP) 32.8 % UP 23.5-40.5 T4 (THYROXINE) (test code=T4) 8.18 UG/DL 5.53-11.0 T7 (FREE THYROXINE INDEX) (test code=T7) 2.7 1.2-4.3 THYROID STIMULATING [id number] 05:29:00* Test Item Value Reference Range Comments THYROID STIMULATING HORMONE (test code=TSH) 2.770 MIU/L 0.465-4.68 Please be aware that bias results for TSH may occur forpatient who are taking Biotin supplements. CPK-MB [id number] 05:29:00* Test Item Value Reference Range Comments CREATINE KINASE (CK) (test code=CK) 88 UNITS/L 30-135 CKMB (test code=CKMBT) < 0.22 NG/ML 0.0-5.6 CKMB INDEX (test code=CKMBI) 0.2 % 4.0-4.4 [id number] 05:29:00* Test Item Value Reference Range Comments TROPONIN-I (test code=TROPI) < 0.012 NG/ML 0.012-0.033 BASIC METABOLIC [id number] 05:04:00* Test Item Value Reference Range Comments SODIUM (test code=NA) 141 MMOL/L 137-145 POTASSIUM (test code=K) 4.1 MMOL/L 3.5-5.1 CHLORIDE (test code=CL) 110 MMOL/L 98-107 CARBON DIOXIDE (test code=CO2) 27 MMOL/L 22-30 ANION GAP (test code=GAP) 8 MMOL/L 14-24 GLUCOSE (test code=GLU) 92 MG/DL 74-106 BLOOD UREA NITROGEN (test code=BUN) 9 MG/DL 7-17 GLOMERULAR FILTRATION RATE (test code=GFR) > 60 Reporting units: ml/min/1.73 m2 (Modified MDRD Formula)Reference Range: > or=60 ml/min/1.73 m2 CREATININE (test code=CREAT) 0.90 MG/DL 0.52-1.04 CALCIUM (test code=CA) 9.2 MG/DL 8.4-10.2 [id number] 05:04:00* Test Item Value Reference Range Comments MAGNESIUM (test code=MAG) 2.1 MG/DL 1.6-2.3 T3,T4 [id number] 05:04:00* Test Item Value Reference Range Comments T3 UPTAKE (test code=T3UP) 32.8 % UP 23.5-40.5 T4 (THYROXINE) (test code=T4) 8.18 UG/DL 5.53-11.0 T7 (FREE THYROXINE INDEX) (test code=T7) 1.2-4.3 THYROID STIMULATING [id number] 05:04:00* Test Item Value Reference Range Comments THYROID STIMULATING HORMONE (test code=TSH) 2.770 MIU/L 0.465-4.68 Please be aware that bias results for TSH may occur forpatient who are taking Biotin supplements. CPK-MB [id number] 05:04:00* Test Item Value Reference Range Comments CREATINE KINASE (CK) (test code=CK) 88 UNITS/L 30-135 CKMB (test code=CKMBT) < 0.22 NG/ML 0.0-5.6 CKMB INDEX (test code=CKMBI) 0.2 % 4.0-4.4 [id number] 05:04:00* Test Item Value Reference Range Comments TROPONIN-I (test code=TROPI) < 0.012 NG/ML 0.012-0.033 BASIC METABOLIC [id number] 04:50:00* Test Item Value Reference Range Comments SODIUM (test code=NA) 141 MMOL/L 137-145 POTASSIUM (test code=K) 4.1 MMOL/L 3.5-5.1 CHLORIDE (test code=CL) 110 MMOL/L 98-107 CARBON DIOXIDE (test code=CO2) 27 MMOL/L 22-30 ANION GAP (test code=GAP) 8 MMOL/L 14-24 GLUCOSE (test code=GLU) 92 MG/DL 74-106 BLOOD UREA NITROGEN (test code=BUN) 9 MG/DL 7-17 GLOMERULAR FILTRATION RATE (test code=GFR) > 60 Reporting units: ml/min/1.73 m2 (Modified MDRD Formula)Reference Range: > or=60 ml/min/1.73 m2 CREATININE (test code=CREAT) 0.90 MG/DL 0.52-1.04 CALCIUM (test code=CA) 9.2 MG/DL 8.4-10.2 [id number] 04:50:00* Test Item Value Reference Range Comments MAGNESIUM (test code=MAG) 2.1 MG/DL 1.6-2.3 T3,T4 [id number] 04:50:00* Test Item Value Reference Range Comments T3 UPTAKE (test code=T3UP) 32.8 % UP 23.5-40.5 T4 (THYROXINE) (test code=T4) 8.18 UG/DL 5.53-11.0 T7 (FREE THYROXINE INDEX) (test code=T7) 1.2-4.3 THYROID STIMULATING [id number] 04:50:00* Test Item Value Reference Range Comments THYROID STIMULATING HORMONE (test code=TSH) MIU/L 0.465-4.68 CPK-MB [id number] 04:50:00* Test Item Value Reference Range Comments CREATINE KINASE (CK) (test code=CK) 88 UNITS/L 30-135 CKMB (test code=CKMBT) < 0.22 NG/ML 0.0-5.6 CKMB INDEX (test code=CKMBI) 0.2 % 4.0-4.4 [id number] 04:50:00* Test Item Value Reference Range Comments TROPONIN-I (test code=TROPI) < 0.012 NG/ML 0.012-0.033 BASIC METABOLIC [id number] 04:45:00* Test Item Value Reference Range Comments SODIUM (test code=NA) 141 MMOL/L 137-145 POTASSIUM (test code=K) 4.1 MMOL/L 3.5-5.1 CHLORIDE (test code=CL) 110 MMOL/L 98-107 CARBON DIOXIDE (test code=CO2) 27 MMOL/L 22-30 ANION GAP (test code=GAP) 8 MMOL/L 14-24 GLUCOSE (test code=GLU) 92 MG/DL 74-106 BLOOD UREA NITROGEN (test code=BUN) 9 MG/DL 7-17 GLOMERULAR FILTRATION RATE (test code=GFR) > 60 Reporting units: ml/min/1.73 m2 (Modified MDRD Formula)Reference Range: > or=60 ml/min/1.73 m2 CREATININE (test code=CREAT) 0.90 MG/DL 0.52-1.04 CALCIUM (test code=CA) 9.2 MG/DL 8.4-10.2 [id number] 04:45:00* Test Item Value Reference Range Comments MAGNESIUM (test code=MAG) 2.1 MG/DL 1.6-2.3 T3,T4 [id number] 04:45:00* Test Item Value Reference Range Comments T3 UPTAKE (test code=T3UP) % UP 23.5-40.5 T4 (THYROXINE) (test code=T4) UG/DL 5.53-11.0 T7 (FREE THYROXINE INDEX) (test code=T7) 1.2-4.3 THYROID STIMULATING [id number] 04:45:00* Test Item Value Reference Range Comments THYROID STIMULATING HORMONE (test code=TSH) MIU/L 0.465-4.68 CPK-MB [id number] 04:45:00* Test Item Value Reference Range Comments CREATINE KINASE (CK) (test code=CK) 88 UNITS/L 30-135 CKMB (test code=CKMBT) < 0.22 NG/ML 0.0-5.6 CKMB INDEX (test code=CKMBI) 0.2 % 4.0-4.4 [id number] 04:45:00* Test Item Value Reference Range Comments TROPONIN-I (test code=TROPI) < 0.012 NG/ML 0.012-0.033 BASIC METABOLIC [id number] 04:41:00* Test Item Value Reference Range Comments SODIUM (test code=NA) 141 MMOL/L 137-145 POTASSIUM (test code=K) 4.1 MMOL/L 3.5-5.1 CHLORIDE (test code=CL) 110 MMOL/L 98-107 CARBON DIOXIDE (test code=CO2) 27 MMOL/L 22-30 ANION GAP (test code=GAP) 8 MMOL/L 14-24 GLUCOSE (test code=GLU) 92 MG/DL 74-106 BLOOD UREA NITROGEN (test code=BUN) 9 MG/DL 7-17 GLOMERULAR FILTRATION RATE (test code=GFR) > 60 Reporting units: ml/min/1.73 m2 (Modified MDRD Formula)Reference Range: > or=60 ml/min/1.73 m2 CREATININE (test code=CREAT) 0.90 MG/DL 0.52-1.04 CALCIUM (test code=CA) 9.2 MG/DL 8.4-10.2 [id number] 04:41:00* Test Item Value Reference Range Comments MAGNESIUM (test code=MAG) 2.1 MG/DL 1.6-2.3 T3,T4 [id number] 04:41:00* Test Item Value Reference Range Comments T3 UPTAKE (test code=T3UP) % UP 23.5-40.5 T4 (THYROXINE) (test code=T4) UG/DL 5.53-11.0 T7 (FREE THYROXINE INDEX) (test code=T7) 1.2-4.3 THYROID STIMULATING [id number] 04:41:00* Test Item Value Reference Range Comments THYROID STIMULATING HORMONE (test code=TSH) MIU/L 0.465-4.68 CPK-MB [id number] 04:41:00* Test Item Value Reference Range Comments CREATINE KINASE (CK) (test code=CK) 88 UNITS/L 30-135 CKMB (test code=CKMBT) NG/ML 0.0-5.6 CKMB INDEX (test code=CKMBI) % 4.0-4.4 [id number] 04:41:00* Test Item Value Reference Range Comments TROPONIN-I (test code=TROPI) NG/ML 0.0-0.045 B-TYPE NATRIURETIC [id number] 04:39:00* Test Item Value Reference Range Comments B-TYPE NATRIURETIC PEPTIDE (test code=BNP) 34.0 PG/ML 0-100 CBC W/AUTO [id number] 04:17:00* Test Item Value Reference Range Comments WHITE BLOOD CELL (test code=WBC) 5.8 K/MM3 3.8-9.8 RED BLOOD CELL (test code=RBC) 3.96 M/MM3 3.58-4.97 HEMOGLOBIN (test code=HGB) 11.7 G/DL 11.2-14.9 HEMATOCRIT (test code=HCT) 35.9 % 33.2-43.5 MEAN CELL VOLUME (test code=MCV) 91 fL 80.7-99.1 MEAN CELL HGB (test code=MCH) 29.5 pg 27.0-34.1 MEAN CELL HGB CONCETRATION (test code=MCHC) 32.6 % 32.2-35.7 RED CELL DISTRIBUTION WIDTH (test code=RDW) 13.1 % 12.1-15.2 PLATELET COUNT (test code=PLT) 225 K/MM3 129-368 MEAN PLATELET VOLUME (test code=MPV) 9.7 fl 7.4-10.4 NEUTROPHIL % (test code=NT%) 49.2 % 43-75 IMMATURE GRANULOCYTE % (test code=IG%) 0.2 % 0.0-2.0 LYMPHOCYTE % (test code=LY%) 39.2 % 14-44 MONOCYTE % (test code=MO%) 8.7 % 4-13 EOSINOPHIL % (test code=EO%) 2.2 % 0-6 BASOPHIL % (test code=BA%) 0.5 % 0-2 NUCLEATED RBC % (test code=NRBC%) 0.0 % 0-1.0 NEUTROPHIL # (test code=NT#) 2.9 K/mm3 2.0-7.6 IMMATURE GRANULOCYTE # (test code=IG#) 0.01 x10 3/uL 0-0.03 LYMPHOCYTE # (test code=LY#) 2.3 K/mm3 1.0-3.8 MONOCYTE # (test code=MO#) 0.51 K/mm3 0.1-0.8 EOSINOPHIL # (test code=EO#) 0.1 K/mm3 0.0-0.2 BASOPHIL # (test code=BA#) 0.03 K/mm3 0.0-0.2 NUCLEATED RBC # (test code=NRBC#) 0.0 K/mm3 0.0-0.1
[2018-11-07] MEDS ORDERED: SODIUM CHLORIDE 0.9% 1000ML 1,000 ML IV STA (15:55)
[2018-11-07] MEDS ORDERED: ONDANSETRON HCL INJ 2MG/ML 2ML 2 MG/ML VIAL IV STA (15:55)
[2018-11-07] MEDS ORDERED: DONNATAL/LIDOCAINE/MAALOX 30 ML SUSP PO ONE (16:00)
--- NOTE | 2018-11-07 16:31 | NUR ---
PT IN NO PAIN. WANTING TO SHOW HER VACATION ACCOMIDATIONS TO STAFF AND SMILING AND JOKING. NO DISTRESS NO VOMITING. MULTIPLE CALLS WITH STAFF EVALS ATTEMPTED.
[2018-11-07 16:32] LABS: BASOPHILS % 0.4 % (0.0-1.0); EOSINOPHILS # (AUTO) 0.1 (0.0-0.4); EOSINOPHILS % 1.5 % (0.0-6.0); HEMATOCRIT 41.4 % (34.2-44.1); HEMOGLOBIN 13.2 g/dL (12.0-16.0); LYMPHOCYTES # (AUTO) 1.9 (1.0-3.2); LYMPHOCYTES % 28.1 % (18.0-39.1); MEAN CORPUSCULAR HEMOGLOBIN 29.3 pg (28-32); MEAN CORPUSCULAR HGB CONC 31.9 g/dL (31-35); MEAN CORPUSCULAR VOLUME 91.8 fL (81-99); MONOCYTES # (AUTO) 0.4 (0.2-0.8); MONOCYTES % 6.1 % (4.4-11.3); NEUTROPHILS # (AUTO) 4.3 (2.1-6.9); NEUTROPHILS % 63.8 % (38.7-80.0); PLATELET COUNT 317 x10e3/uL (140-360); RED BLOOD COUNT 4.51 x10e6/uL (3.6-5.1); RED CELL DISTRIBUTION WIDTH 13.4 % (11.7-14.4)
[2018-11-07 16:52] LABS: ALANINE AMINOTRANSFERASE 13 IU/L (0-55); ALBUMIN 4.3 g/dL (3.5-5.0); ALBUMIN/GLOBULIN RATIO 1.1 (0.8-2.0); ALKALINE PHOSPHATASE 101 IU/L (40-150); AMYLASE 47 U/L (25-125); ANION GAP 12.7 mmol/L (8-16); BLOOD UREA NITROGEN 8 mg/dL (7-26); BUN/CREATININE RATIO 8 (6-25); CALCIUM 9.7 mg/dL (8.4-10.2); CARBON DIOXIDE 25 mmol/L (22-29); CHLORIDE 105 mmol/L (98-107); CREATINE KINASE 218 IU/L (29-168); CREATININE, SERUM 0.99 mg/dL (0.57-1.11); EST GLOMERULAR FILTRATION RATE 60 ML/MIN (60-); GLUCOSE 82 mg/dL (74-118); LIPASE 21 U/L (8-78); MAGNESIUM 2.7 MG/DL (1.3-2.1); POTASSIUM 3.7 mmol/L (3.5-5.1); SODIUM 139 mmol/L (136-145)
[2018-11-07] MEDS ORDERED: MAGNESIUM/ALUMINUM/SIMETHICONE 30 ML UDC PO ONE (17:00)
[2018-11-07] MEDS ORDERED: LIDOCAINE VISC 2% SOLN 15 ML UDC PO ONE (17:00)
[2018-11-07 17:57] LABS: BILIRUBIN,URINE NEGATIVE (NEGATIVE); CLARITY,URINE CLEAR (CLEAR); COLOR,URINE YELLOW (YELLOW); KETONES,URINE NEGATIVE (NEGATIVE); LEUKOCYTE ESTERASE ,URINE NEGATIVE (NEGATIVE); NITRITE,URINE NEGATIVE (NEGATIVE); PROTEIN,URINE DIPSTICK NEGATIVE (NEGATIVE); URINE UROBILINOGEN 0.2 mg/dL (0.2 - 1)
[2018-11-07 18:00] LABS: AMPHETAMINES SCREEN,URINE NEGATIVE (NEGATIVE); BENZODIAZEPINES SCREEN,URINE NEGATIVE (NEGATIVE); PHENCYCLIDINE SCREEN,URINE NEGATIVE (NEGATIVE)
[2018-11-07 18:10] LABS: RBC,URINE 0-5 /HPF (0-5)
--- NOTE | 2018-11-07 18:11 | Diagnostic Imaging Report ---
A single frontal view of the chest. HISTORY: Abdominal pain, history of Crohn's COMPARISON: None available. DISCUSSION: Portable technique, limits sensitivity of the exam. Tubes/Lines: None Lungs and pleura: The lungs are well inflated. No evidence of a consolidative pneumonia or pulmonary alveolar edema. No definite pleural effusion or pneumothorax is identified. Heart and mediastinum: The cardiomediastinal silhouette appears unremarkable. Bones and soft tissues: Partially visualized cervical metallic fixation hardware. IMPRESSION: No acute radiographic abnormality. Signed by: Dr. Jc Mccallum D.O., M.M.M. on 11/07/2018 6:08 PM
[2018-11-07] MEDS ORDERED: OMEPRAZOLE40 MG PO (18:15)
[2018-11-07] MEDS ORDERED: FAMOTIDINE40 MG PO (18:15)
--- NOTE | 2018-11-07 18:45 | NUR ---
CALLED [facility] FOR PATIENT REQUEST @ [phone]
--- NOTE | 2018-11-07 18:47 | NUR ---
PT TOOK OUT OWN IV AND WANTED CAB CALLED. CAB CALLED FOR PT AND THEN NOTED PT LEAVING OUT OF LOBBY WITH ANOTHER PERSON IN POV AFTER REQUESTING CAB BE CALLED MULTIPLE TIMES. PT NEVER VOMITED ONCE SINCE ARRIVAL. PT OBSERVED TAKING UNK MEDICATIONS WHILE HERE AND NOTIFIED. PT STATES IT WAS HER "IMITREX." PT URINE WAS CLEAR/WATER LIKE CONSISTANCY. AWARE.
== END 2018-11-07 18:55 | disposition home or self-care (01) ==
LOC: ER 15:25
DX: R11.2 Nausea with vomiting, unspecified (principal); R10.13 Epigastric pain
CPT/HCPCS: 36415; 71045; 80053; 80307; 81001; 82150; 82550; 82553; 83690; 83735; 83880; 84484; 85025; 87086; 99284; J2405; J7030